=== PATIENT | male | born 1970 | race Hispanic/Latino ===

== ENCOUNTER 2017-06-09 02:19 | Emergency (ER) | payer OTHER ==
[2017-06-09 03:14] LABS: #Eosinphils 0.1 thou/uL (0.0-0.7); #Lymphocytes 1.7 thou/uL (1.20-3.40); #Monocytes 0.6 thou/uL (0.11-0.59); #Neutrophils 12.3 thou/uL (1.40-6.50); %Basophils 0.2 % (0.0-1.0); %Eosinophils 0.9 % (0.0-10.0); %Lymphocytes 11.4 % (21.0-51.0); %Monocytes 4.2 % (0.0-10.0); Hematocrit 46.8 % (42.0-52.0); Mean Platelet Volume 6.4 fL (7.4-10.4); Red Blood Cell (RBC) Count 5.42 mill/uL (4.70-6.10); White Blood Cell (WBC) Count 14.8 thou/uL (4.8-10.8)
[2017-06-09 03:35] LABS: ALT (SGPT) 36 U/L (8-55); AST (SGOT) 19 U/L (5-34); Alkaline Phosphatase 113 U/L (40-150); Anion Gap 12 mmol/L (10-20); BUN (Urea Nitrogen) 14 mg/dL (8.9-20.6); Bilirubin, Total 0.3 mg/dL (0.2-1.2); Calc. Creatinine Clearance 0 mL/min (70-130); Calcium 9.5 mg/dL (7.8-10.44); Carbon Dioxide 25 mmol/L (22-29); Chloride 104 mmol/L (98-107); Estimated GFR-MDRD 87; Globulin 3.4 g/dL (2.4-3.5); Protein, Total 7.8 g/dL (6.0-8.3)
[2017-06-09 03:38] LABS: Troponin I Less than 0.010 ng/mL (< 0.028)
[2017-06-09] MEDS ORDERED: ISOVUE-370 76%-LOCM 1 ML ONE (04:06)
--- NOTE | 2017-06-09 08:27 | CT ---
PRELIMINARY REPORT/[facility]/EMERGENCY AFTER HOURS PROCEDURE: EXAM: CT Angiography Chest With Intravenous Contrast CLINICAL HISTORY: 47 years old, male; Pain and signs and symptoms; Shortness of breath; Chest pain; Patient HX: M47 pr esents to ed C/O chest pain. Pt describes pain as sharp pain that can sometimes feel like soreness w hen he moves. Pt started having these episodes of chest pain about a month ago. Pt reports SOB and c ough that usually accompanies chest pain. Pt has previously had stress test in 2012. Pt was supposed to get a CT on that was rescheduled for saturday. Pt came to ed today because his blood pre ssure was 170/110 and he didn't feel well. Pt states that he feels that these episodes have been inc reasing in intensity recently but says it's "hard to say" if they have been increasing in frequency. TECHNIQUE: Axial computed tomographic angiography images of the chest with intravenous contrast using pulmonary embolism protocol. COMPARISON: No relevant prior studies available. FINDINGS: Pulmonary arteries: Some motion artifact noted. No pulmonary embolus is identified. Aorta: No acute findings. No thoracic aortic aneurysm. Lungs: Normal. No mass. No consolidation. Pleural space: No significant effusion. No pneumothorax. Heart: Unremarkable. Bones/joints: No acute fracture. No dislocation. Soft tissues: Unremarkable. Lymph nodes: Unremarkable. No enlarged lymph nodes. Upper abdomen: Gastric band. Cholecystectomy. IMPRESSION: No acute findings. Thank you for allowing us to participate in the care of your patient. Dictated and Authenticated by: Jose Roberto Crouch MD 06/09/2017 6:19 AM Central Time ([place] \\T\\ Saw) FINAL REPORT CT ARTERIOGRAM CHEST WITH IV CONTRAST AND 3D MIP IMAGING: DATE: 06/09/17. TIME: Performed on emergency basis at 0510 hours. HISTORY: Chest pain. FINDINGS: No comparison. Findings agree with the preliminary report by Dr. Crouch from [facility]. The re is no CT evidence of pulmonary embolus. Bariatric LAP band is visualized at the GE junction. POS: [facility]
--- NOTE | 2017-06-09 09:06 | RAD ---
CHEST 1 VIEW: HISTORY: Chest pain. FINDINGS: No comparison. Cardiac silhouette is magnified by projection. Pulmonary vasculature is unremarkabl e. Mediastinum is midline. There is no confluent airspace consolidation or evidence of pneumothora x. IMPRESSION: No active cardiopulmonary abnormalities are demonstrated. POS: [facility]
== END 2017-06-09 06:41 | disposition home or self-care (01) ==
LOC: ERS 02:19
DX: R07.9 Chest pain, unspecified (principal); E78.5 Hyperlipidemia, unspecified; Z79.899 Other long term (current) drug therapy
CPT/HCPCS: 36415; 71010; 71275; 80053; 82553; 83880; 84484; 85025; 93005